=== PATIENT | female | born 1995 | race Caucasian/White ===

== ENCOUNTER 2024-05-03 15:08 | Emergency (ER) | payer MEDICAID ==
[~2024-05-03] VITALS: Ht 167.6 cm; Wt 80.0 kg
[2024-05-03 15:11] VITALS: TEMP 98.6; O2SAT 100
[2024-05-03] MEDS: LEVETIRACETAM 500MG PREMIX 100 ML IV ONE (15:43)
[2024-05-03] MEDS: SODIUM CHLORIDE 0.9% 1,000 ML IV ONE (15:52)
[2024-05-03 16:16] LABS: BASOPHILS % 0.5 % (0.0-2.0); DIFFERENTIAL COMMENT 0; EOSINOPHILS % 0.5 % (0.0-5.0); HEMATOCRIT. 45.6 % (36.0-48.0); HEMOGLOBIN. 14.5 g/dL (12.0-16.0); LYMPHOCYTES % 12.8 % (20.0-50.0); MEAN CORPUSCULAR HEMOGLOBIN 24.6 pg (28.0-32.0); MEAN CORPUSCULAR HGB CONC 31.7 g/dL (31.0-37.0); MEAN CORPUSCULAR VOLUME 77.5 fL (81.0-99.0); MEAN PLATELET VOLUME 8.2 fl (7.4-10.4); MONOCYTES % 5.7 % (2.0-8.0); NEUTROPHILS % 80.5 % (40.0-76.0); PLATELET 229 x1000/uL (130-400); RED BLOOD CELL COUNT 5.89 mill/uL (4.2-5.4); RED CELL DISTRIBUTION WIDTH 17.2 % (11.6-14.6); WHITE BLOOD COUNT 7.4 x1000/uL (4.5-11.0)
[2024-05-03 16:20] LABS: CHLORIDE 111 mEq/L (98-107); POTASSIUM 3.5 mEq/L (3.5-5.1); SODIUM 141 mEq/L (136-145)
[2024-05-03 16:21] LABS: CARBON DIOXIDE 17 mEq/L (21-32)
[2024-05-03 16:26] LABS: CREATININE 0.8 mg/dL (0.6-1.0); GLUCOSE 163 mg/dL (70-105); UREA NITROGEN BLOOD 5 mg/dL (9-23)
[2024-05-03 16:27] LABS: HCG SCREEN NEGATIVE
[2024-05-03 16:28] LABS: ALANINE AMINOTRANSFERASE 16 IU/L (10-49); ALBUMIN 5.2 g/dL (3.2-4.8); ASPARTATE AMINOTRANSFERASE 22 IU/L (<34)
[2024-05-03 16:29] LABS: BILIRUBIN TOTAL 0.6 mg/dL (0.1-1.0)
[2024-05-03] MEDS: ACETAMINOPHEN 325MG TABLET PO ONE (16:51)
[2024-05-03 18:00] VITALS: BP 115/61; PULSE 89; RESP 22
[2024-05-03] MEDS: KETOROLAC 15MG/ML VIAL IV ONE (18:00)
== END 2024-05-03 19:16 | disposition home or self-care (01) ==
LOC: ER 15:08
DX: R56.9 Unspecified convulsions (principal)
CPT/HCPCS: 99285; 96365; 70450; 96366; 80053; 84703; 85025; 36415; 93005; J1953; J7030